=== PATIENT | male | born 1985 | race Caucasian/White ===

== ENCOUNTER 2017-09-02 15:49 | Emergency (ER) | payer MEDICAID ==
[~2017-09-02] VITALS: Ht 177.8 cm; Wt 105.0 kg
[~2017-09-02 15:49] MED LIST: DILA100C PO
[2017-09-02] MEDS ORDERED: FOSPHENYTOIN SODIUM 500 MG PE/10 ML VIAL IM ONE (16:00)
[2017-09-02 16:05] VITALS: BP 130/61; PULSE 82; RESP 16; TEMP 97.9; O2SAT 99
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
== END 2017-09-02 16:35 | disposition left against medical advice (07) ==
LOC: NEPD 15:49
DX: G40.909 Epilepsy, unspecified, not intractable, without status epilepticus (principal); F17.200 Nicotine dependence, unspecified, uncomplicated; Z87.820 Personal history of traumatic brain injury
CPT/HCPCS: 99283